=== PATIENT | female | born 1985 | race American Indian/Alaskan Native ===

== ENCOUNTER 2017-05-26 09:18 | Outpatient (CLI) | payer OTHER ==
--- NOTE | 2017-05-26 10:39 | Ultrasound Report ---
Pelvic ultrasound: Uterine fibroids and dysfunctional uterine bleeding. Endovaginal and transabdominal imaging demonstrates an anteflexed uterus measuring 4.7 x 6.0 x 9.7 cm. 2 partially exophytic hypodensity is identified in the uterus. One of these is located along the anterior wall measuring 16 mm and the other is at the high fundus measuring 14 mm. The endometrial thickness is approximately 8.3 mm. There is a central echodensity within the endometrium measuring approximately 4 x 13 mm. The left ovary measures 3 cm and the right ovary measures 3.4 cm. Both contain scattered follicles. No free fluid. Impression: 1. Endometrial polyp. 2. Small peripheral uterine fibroids.
== END 2017-05-26 09:19 | disposition home or self-care (01) ==
LOC: SPVWC 09:18
PROVIDERS: ATTEND General Practice
DX: D25.9 Leiomyoma of uterus, unspecified (principal); N84.0 Polyp of corpus uteri
CPT/HCPCS: 76830; 76856

== ENCOUNTER 2022-01-30 10:30 | Emergency (ER) | payer SELFPAY ==
[2022-01-30] MEDS: diphenhydrAMINE 50 MG/ML VIAL IV ONE (12:27)
[2022-01-30] MEDS: METOCLOPRAMIDE 10 MG/2 ML INJ IV ONE (12:27)
[2022-01-30] MEDS: MORPHINE 4 MG/1 ML INJ IV ONE (12:28)
[2022-01-30 13:58] LABS: Hematocrit 40.4 % (30.3-42.9); Hemoglobin 13.4 gm/dl (10.1-14.3); Mean Corpuscular HGB Conc 33 % (30-34); Mean Corpuscular Volume 102 fl (79-97); Platelet Count 312 K/mm3 (140-440); Red Blood Count 3.94 M/mm3 (3.65-5.03); Red Cell Distribution Width 12.9 % (13.2-15.2)
[2022-01-30 14:15] LABS: Alanine Aminotransferase 6 units/L (7-56); Albumin 4.5 g/dL (3.9-5); Blood Urea Nitrogen 17 mg/dL (7-17); Calcium 9.9 mg/dL (8.4-10.2); Hemolysis Index 4
[2022-01-30 14:16] LABS: BUN/Creatinine Ratio 24
--- NOTE | 2022-01-30 14:55 | Emergency Department Report ---
ED Abdominal Pain HPI - General Chief Complaint: Abdominal Pain Stated Complaint: N/V Time Seen by Provider: 01/30/22 11:54 Source: EMS Mode of arrival: Wheelchair Limitations: No Limitations - History of Present Illness Initial Comments: 36 yof with no pmh presents to ed for evaluation of abdominal pain, n/v that started this am. She states that she woke up with these symptoms and they have been getting progressively worse over the coarse of the day. She denies diarrhea, fever, vaginal discharge. She had one dose of Zofran en route without improvement. She states that she is currently on her menstrual cycle. MD Complaint: abdominal pain -: hour(s) Location: LLQ Radiation: none Migration to: no migration Severity scale (0 -10): 10 Quality: cramping, aching Consistency: constant Associated Symptoms: nausea, vomiting. denies: diarrhea, fever, chills, dysuria, hematemesis, hematochezia, melena, hematuria, anorexia, syncope - Related Data LMP Date: 01/30/22 Previous Rx's Medication Instructions Recorded Last Taken Type Naproxen [Naprosyn] 500 mg PO BID #14 tab 01/30/22 Unknown Rx Ondansetron [Zofran Odt] 4 mg PO Q8HR PRN #12 tab.rapdis 01/30/22 Unknown Rx Promethazine [Phenergan] 25 mg AR Q6HR PRN #12 supp.rect 01/30/22 Unknown Rx Allergies Allergy/AdvReac Type Severity Reaction Status Date / Time No Known Allergies Allergy Verified 01/30/22 10:33 ED Review of Systems ROS: Stated complaint: N/V Other details as noted in HPI Comment: All other systems reviewed and negative Constitutional: no symptoms reported Eyes: denies: eye pain, eye discharge ENT: denies: ear pain Respiratory: denies: cough, orthopnea, shortness of breath, SOB with exertion, SOB at rest Cardiovascular: denies: chest pain, palpitations, dyspnea on exertion, orthopnea, edema, syncope, paroxysmal nocturnal dyspnea Endocrine: no symptoms reported Gastrointestinal: abdominal pain, nausea, vomiting. denies: diarrhea, hematemesis, melena, hematochezia Genitourinary: denies: urgency, dysuria, frequency, hematuria, discharge Musculoskeletal: denies: back pain Skin: denies: rash, lesions Neurological: denies: headache, weakness, numbness, paresthesias Psychiatric: denies: anxiety, depression Hematological/Lymphatic: denies: easy bleeding, easy bruising ED Past Medical Hx - Medications Home Medications: Home Medications Medication Instructions Recorded Confirmed Last Taken Type Naproxen [Naprosyn] 500 mg PO BID #14 tab 01/30/22 Unknown Rx Ondansetron [Zofran Odt] 4 mg PO Q8HR PRN #12 tab.rapdis 01/30/22 Unknown Rx Promethazine [Phenergan] 25 mg AR Q6HR PRN #12 supp.rect 01/30/22 Unknown Rx ED Physical Exam - General Limitations: No Limitations General appearance: alert, in no apparent distress - Head Head exam: Present: atraumatic, normocephalic - Eye Eye exam: Present: normal appearance. Absent: conjunctival injection - Neck Neck exam: Present: normal inspection. Absent: tenderness, lymphadenopathy - Respiratory Respiratory exam: Present: normal lung sounds bilaterally. Absent: respiratory distress, wheezes, rales, rhonchi, stridor, chest wall tenderness - Cardiovascular Cardiovascular Exam: Present: regular rate, normal heart sounds - GI/Abdominal GI/Abdominal exam: Present: soft, tenderness (LLQ), normal bowel sounds. Absent: distended, guarding, rebound, rigid - Extremities Exam Extremities exam: Present: normal inspection, full ROM - Back Exam Back exam: Present: normal inspection. Absent: CVA tenderness (R), CVA tenderness (L) - Neurological Exam Neurological exam: Present: alert, oriented X3 - Psychiatric Psychiatric exam: Present: normal affect, normal mood - Skin Skin exam: Present: warm, dry, intact, normal color ED Course Vital Signs 01/30/22 01/30/22 10:31 16:50 Temperature 98.6 F Pulse Rate 66 83 Respiratory 20 20 Rate Blood Pressure 123/72 Blood Pressure 122/70 [Left] O2 Sat by Pulse 98 99 Oximetry - Reevaluation(s) Reevaluation #1: Nausea vomiting abdominal pain resolved 01/30/22 14:55 ED Medical Decision Making - Lab Data Result diagrams: 01/30/22 13:16 01/30/22 13:16 - Radiology Data Radiology results: report reviewed CT abdomen and pelvis with contrast. IMPRESSION: 1. Cystic lesions in both adnexal regions are probably related to tubal pathology/hydrosalpinx. Small left ovarian cyst is probably follicular. A couple of uterine fibroids. Transvaginal pelvic ultrasound may be helpful in further evaluation. 2. No other cause for left lower quadrant pain is seen. - Medical Decision Making 36 yof with no pmh presents to ed for evaluation of abdominal pain, n/v that started this am. She states that she woke up with these symptoms and they have been getting progressively worse over the coarse of the day. She denies diarrhea, fever, vaginal discharge. She had one dose of Zofran en route without improvement. She states that she is currently on her menstrual cycle. No gross abnormalities noted to labs, ua negative for uti and negative test. CT scan of abdomen and pelvis without any acute abnormalities but did have ovarian cyst and uterine fibroids. Symptoms were relieved after medications. Patient will be treated with prn antiemetics and NSAIDs for pain and nausea and encouraged to follow up with press cutter, GI, and pcp for further evaluation and management. - Differential Diagnosis Diverticulitis vs ovarian cyst vs. dysmenorrhea vs gastroenteritis Critical care attestation.: If time is entered above; I have spent that time in minutes in the direct care of this critically ill patient, excluding procedure time. ED Disposition Clinical Impression: Abdominal pain Qualifiers: Abdominal location: left lower quadrant Qualified Code(s): R10.32 - Left lower quadrant pain Uterine fibroid Qualifiers: Uterine leiomyoma location: unspecified location Qualified Code(s): D25.9 - Leiomyoma of uterus, unspecified Ovarian cyst Qualifiers: Laterality: left Qualified Code(s): N83.202 - Unspecified ovarian cyst, left side Disposition: 01 HOME / SELF CARE / HOMELESS Is pt being admited?: No Does the pt Need Aspirin: No Condition: Stable Instructions: Uterine Fibroids, [id number], Abdominal Pain, Adult, [id number], Ovarian Cyst, [id number], Abdominal Pain (ED) Additional Instructions: Take medication as prescribed. Follow-up with OB, primary care provider, and GI. Return to the emergency department for worsening symptoms. Prescriptions: Naproxen [Naprosyn] 500 mg PO BID #14 tab Promethazine [Phenergan] 25 mg AR Q6HR PRN #12 supp.rect PRN Reason: Nausea And Vomiting Ondansetron [Zofran Odt] 4 mg PO Q8HR PRN #12 tab.rapdis PRN Reason: Nausea And Vomiting Referrals: MADHAVI HE MD [Referring] - 3-5 Days DASHAWN SINCLAIR MD [Referring] - 3-5 Days MELL BROOKS MD [Staff Physician] - 3-5 Days Time of Disposition: 16:09
--- NOTE | 2022-01-30 15:07 | Cat Scan Report ---
CT ABDOMEN AND PELVIS WITH INTRAVENOUS CONTRAST INDICATION / CLINICAL INFORMATION: Left lower quadrant pain. TECHNIQUE: 100 cc Omnipaque [address] scans at this location are performed using CT d ose reduction for SHREYA by means of automated exposure control. COMPARISON: None available. FINDINGS: ABDOMEN: There are multiple tiny cysts scattered throughout the liver. The gallbladder, bile ducts, p ancreas, spleen, adrenal glands and kidneys are normal. There is a small hiatal hernia. No adenopathy is present. No acute vascular abnormality is seen. The lung bases are clear. PELVIS: There is a 3.7 cm ovoid lobulated simple appearing cyst in the right adnexa, located posterio r to a normal-appearing right ovary. There are smaller rounded cysts adjacent to the left ovary. The adnexal cysts may be related to the fallopian tubes. There does appear to be 1 small follicular cyst in the left ovary. No free fluid is present. There are a couple of uterine fibroids, the largest of w hich measures 2.3 cm in the subserosal portion of the uterine fundus on the left. A normal appendix is present and there is no evidence of diverticulitis. I do not identify a hernia. No acute osseous abnormality is seen. IMPRESSION: 1. Cystic lesions in both adnexal regions are probably related to tubal pathology/hydrosalpinx. Small left ovarian cyst is probably follicular. A couple of uterine fibroids. Transvaginal pelvic ultrasou nd may be helpful in further evaluation. 2. No other cause for left lower quadrant pain is seen. Signer Name: German Talbot MD Signed: 01/30/2022 3:03 PM Workstation Name: [employer]
[2022-01-30 15:59] LABS: Color,Urine Yellow (Yellow)
[2022-01-30 16:00] LABS: Bilirubin,Urine Negative (Negative); Blood,Urine Negative (Negative)
[2022-01-30 16:13] LABS: Mucus,Urine FEW /HPF
[2022-01-30] MEDS: KETOROLAC 30 MG/1 ML INJ IV ONE (16:38)
[2022-01-30] MEDS: PROCHLORPERAZINE EDISYLATE 10 MG/2 ML VIAL IV ONE (16:39)
[2022-01-30 16:54] VITALS: BP 123/72
== END 2022-01-30 16:54 | disposition home or self-care (01) ==
LOC: ED 10:30
DX: R10.32 Left lower quadrant pain (principal); D25.9 Leiomyoma of uterus, unspecified; N83.209 Unspecified ovarian cyst, unspecified side
CPT/HCPCS: 36415; 74177; 80053; 81001; 83690; 84703; 85027; 87086; 96374; 96375; 99284; J0780; J1200; J1885; J2270; J2765; Q9967